=== PATIENT | male | born 1965 | race Caucasian/White ===

== ENCOUNTER 2016-12-05 15:35 | Emergency (ER) | payer OTHER ==
[2016-12-05 15:46] VITALS: RESP 18; TEMP 98.1; O2SAT 96
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
[2016-12-05 16:30] VITALS: BP 111/67; PULSE 71
== END 2016-12-05 16:30 | disposition home or self-care (01) ==
LOC: CED 15:35
DX: S50.02XA Contusion of left elbow, initial encounter (principal); V18.0XXA Pedal cycle driver injured in noncollision transport accident in nontraffic accident, initial encounter; Y92.410 Unspecified street and highway as the place of occurrence of the external cause; Y99.8 Other external cause status; Y93.55 Activity, bike riding
CPT/HCPCS: 73080-PO